=== PATIENT | male | born 1965 | race Two or more races ===

== ENCOUNTER 2019-08-28 20:00 | Emergency (ER) | payer MEDICAID ==
[~2019-08-28] VITALS: Ht 190.5 cm; Wt 99.8 kg
[2019-08-28 21:42] LABS: Basophils # (auto) 0.1 10 ^3/uL (0-0.2); Basophils % (auto) 0.7 % (0.0-2.0); Eosinophils # (auto) 0.2 10 ^3/uL (0-0.8); Hematocrit 38.1 % (41.0-53.0); Hemoglobin 12.8 g/dL (13.5-17.5); Lymphocytes # (auto) 1.9 10 ^3/uL (0.4-5.4); Lymphocytes % (auto) 18.6 % (10.0-50.0); Mean Corpuscular Hemoglobin 28.6 pg (28.0-32.0); Mean Corpuscular Hgb Conc. 33.6 g/dL (32.0-36.0); Mean Corpuscular Volume 84.9 fL (80.0-100.0); Monocytes # (auto) 1.1 10 ^3/uL (0-1.3); Monocytes % (auto) 10.1 % (0.0-12.0); Neutrophils # (auto) 7.1 10 ^3/uL (1.6-8.6); Neutrophils % (auto) 68.6 % (37.0-80.0); Platelet Count (auto) 270 10^3/uL (140-450); Red Blood Cells 4.48 10^6/uL (4.5-5.90); Red Cell Distribution Width 14.5 % (11.8-14.3); White Blood Cell 10.4 10^3/uL (4.4-10.8)
[2019-08-28 22:01] LABS: Albumin 3.6 g/dL (3.4-5.0); Calcium 8.8 mg/dL (8.5-10.1)
[2019-08-28 22:04] LABS: BUN/Creatinine Ratio 19.3; Bilirubin, Total 0.6 mg/dL (0.2-1.0); Total Protein 7.8 g/dL (6.4-8.2)
[2019-08-28 22:06] LABS: INR 0.96 (0.9-1.15); Partial Thromboplastin Time 28.8 sec (23.64-32.05)
[2019-08-29] MEDS ORDERED: LIDOCAINE 1% HCL (LOCAL ANESTH.) INJ 20ML MDV ID ONE
[2019-08-29] MEDS ORDERED: HYDROcodone-ACET 5/325MG TAB PO ONE (01:00)
[2019-08-29] MEDS ORDERED: cefTRIAXone W LIDOCAINE 1 GM IM IM ONE (01:30)
[2019-08-29] MEDS ORDERED: cefTRIAXone SOD 1,000 MG VL IM ONE (02:15)
[2019-08-29 03:00] VITALS: BP 132/85
== END 2019-08-29 03:40 | disposition home or self-care (01) ==
LOC: ER 20:01
DX: S80.12XA Contusion of left lower leg, initial encounter (principal); L08.9 Local infection of the skin and subcutaneous tissue, unspecified; I82.812 Embolism and thrombosis of superficial veins of left lower extremity; L03.116 Cellulitis of left lower limb; X58.XXXA Exposure to other specified factors, initial encounter; Y93.89 Activity, other specified; Y92.89 Other specified places as the place of occurrence of the external cause; Y99.8 Other external cause status
CPT/HCPCS: 10060; 36415; 73700; 80053; 85025; 85610; 85730; 87205; 93971; 96372

== ENCOUNTER 2019-08-31 10:31 | Inpatient (IN) | payer MEDICAID, OTHER ==
[~2019-08-31] VITALS: Ht 190.5 cm; Wt 105.5 kg
[2019-08-31] MEDS ORDERED: SODIUM CHLORIDE 0.9% 500 ML IV ONE (11:19)
[2019-08-31] MEDS ORDERED: CLINDAMYCIN 600MG IV 50 ML IV ONE (11:30)
[2019-08-31 11:54] LABS: Basophils # (auto) 0 10 ^3/uL (0-0.2); Basophils % (auto) 0.4 % (0.0-2.0); Eosinophils # (auto) 0.2 10 ^3/uL (0-0.8); Hematocrit 36.5 % (41.0-53.0); Hemoglobin 12.6 g/dL (13.5-17.5); Lymphocytes # (auto) 1.6 10 ^3/uL (0.4-5.4); Lymphocytes % (auto) 18.4 % (10.0-50.0); Mean Corpuscular Hemoglobin 29.2 pg (28.0-32.0); Mean Corpuscular Hgb Conc. 34.6 g/dL (32.0-36.0); Mean Corpuscular Volume 84.4 fL (80.0-100.0); Monocytes % (auto) 11.5 % (0.0-12.0); Neutrophils # (auto) 5.8 10 ^3/uL (1.6-8.6); Neutrophils % (auto) 67.7 % (37.0-80.0); Platelet Count (auto) 265 10^3/uL (140-450); Red Blood Cells 4.32 10^6/uL (4.5-5.90); Red Cell Distribution Width 14.5 % (11.8-14.3); White Blood Cell 8.6 10^3/uL (4.4-10.8)
[2019-08-31 12:15] LABS: Potassium 4.3 mmol/L (3.5-5.1)
[2019-08-31] MEDS ORDERED: ACETAMINOPHEN 500 MG TAB PO PRN (12:30)
[2019-08-31] MEDS ORDERED: IPRATROPIUM BROM 0.5 MG/2.5ML INH SOL NEB PRN (12:30)
[2019-08-31] MEDS ORDERED: HYDROcodone-ACET 5/325MG TAB PO PRN (12:30)
[2019-08-31] MEDS ORDERED: MORPHINE SULF INJ 2 MG/ML SYRINGE 1ML IV PRN (12:30)
[2019-08-31] MEDS ORDERED: ONDANSETRON HCL 4 MG/2 ML VIAL IV PRN (12:30)
[2019-08-31] MEDS ORDERED: ALBUTEROL SULF 2.5 MG/0.5ML(0.5%) NEB SOLN NEB PRN (12:30)
[2019-08-31] MEDS ORDERED: VANCOMYCIN PER PHARMACY 0 MG IV SCH (12:30)
[2019-08-31 12:33] LABS: Albumin 3.2 g/dL (3.4-5.0); Bilirubin, Total 0.5 mg/dL (0.2-1.0); Calcium 8.6 mg/dL (8.5-10.1); Total Protein 7.5 g/dL (6.4-8.2)
[2019-08-31] MEDS: SODIUM CHLORIDE 0.9% 1,000 ML IV SCH ×3 (12:43→23:20)
[2019-08-31] MEDS ORDERED: FAMOTIDINE 20 MG TAB PO ONE (12:45)
[2019-08-31] MEDS ORDERED: cefTRIAXone 1GM/50ML D5W 50 ML IV ONE (12:45)
--- NOTE | 2019-08-31 13:04 | NUR ---
Report ER report received from GIA Schaffer.
--- NOTE | 2019-08-31 13:14 | NUR ---
Arrived to Unit Patient arrived to unit via wheelchair. No signs of distress at this time. Respirations even and unlabored, safety precautions in place. Will continue to monitor.
--- NOTE | 2019-08-31 13:24 | NUR ---
Skin Assessment Left calf puncture; leg has non pitting edema, bright red tissue surrounding area. Patient states he is unsure how wound occurred, states it could be puncture wound from work or spider bite. Wound is currently open to air but packed during last visit. No signs of distress noted at this time, bed is locked and in lowest position, call light within reach. Patient oriented to room and call light. Respirations even and unlabored, will continue to monitor.
[2019-08-31] MEDS: VANCOMYCIN 1GM/250ML 250 ML IV SCH (14:31)
--- NOTE | 2019-08-31 18:36 | NUR ---
Hospitalist Spoke with Richard, new orders to remove packing and measure depth of wound.
--- NOTE | 2019-08-31 18:45 | NUR ---
Wound Packing removed per MD order. Wound cleansed and wrapped with gauze. Wound measures approximately 1.5 cm in depth.
--- NOTE | 2019-08-31 19:22 | NUR ---
Respiratory note: AT BESIDE TO ASSESS PT FOR PRN TX. TX NOT INDICATED AT THIS TIME, BS ARE CLEAR T/O, HR IN 70S, POX 96-98% ON RA. NO S/S OF DISTRESS NOTED. PT AWARE I CAN BE PAGED AT ANY TIME HE HAS A CONCERN WITH HIS BREATHING RT NAME AND PAGER ASSIGNMENT WRITTEN ON PTS ROOM BOARD WILL CONTINUE TO MONITOR.
--- NOTE | 2019-08-31 20:00 | NUR ---
assumed care, tp. awake, no co pain, not in distress.
[2019-08-31 22:00] VITALS: BP 150/91
[2019-09-01] MEDS: VANCOMYCIN 1GM/250ML 250 ML IV SCH ×2 (00:01→10:20)
[2019-09-01 03:08] VITALS: BP 150/91
[2019-09-01 05:00] VITALS: BP 143/89
[2019-09-01 06:33] LABS: Basophils # (auto) 0 10 ^3/uL (0-0.2); Basophils % (auto) 0.6 % (0.0-2.0); Eosinophils # (auto) 0.2 10 ^3/uL (0-0.8); Hematocrit 36.6 % (41.0-53.0); Hemoglobin 12.3 g/dL (13.5-17.5); Lymphocytes # (auto) 1.7 10 ^3/uL (0.4-5.4); Lymphocytes % (auto) 19.6 % (10.0-50.0); Mean Corpuscular Hemoglobin 28.5 pg (28.0-32.0); Mean Corpuscular Hgb Conc. 33.6 g/dL (32.0-36.0); Mean Corpuscular Volume 84.9 fL (80.0-100.0); Monocytes # (auto) 0.9 10 ^3/uL (0-1.3); Monocytes % (auto) 10.6 % (0.0-12.0); Neutrophils # (auto) 5.7 10 ^3/uL (1.6-8.6); Neutrophils % (auto) 67.2 % (37.0-80.0); Platelet Count (auto) 303 10^3/uL (140-450); Red Blood Cells 4.31 10^6/uL (4.5-5.90); Red Cell Distribution Width 14.6 % (11.8-14.3); White Blood Cell 8.5 10^3/uL (4.4-10.8)
[2019-09-01 06:51] LABS: Potassium 4.4 mmol/L (3.5-5.1)
[2019-09-01 06:56] LABS: BUN/Creatinine Ratio 13.8; Calcium 8.8 mg/dL (8.5-10.1)
--- NOTE | 2019-09-01 08:00 | NUR ---
ASSUMED CARE OF PT FULLY INDEPENDENT IN CARES. PLEASANT DENIES ANY DISCOMFORT OR NEEDS. LUNG SOUNDS CLEAR. MARKED EDEMA NOTED TO LEFT LOWER EXTREMITY. DSG IN PLACE. STATES PACKING HAS BEEN REMOVED. PEDAL PULSE PALPATED PRESENT. +1 PITTING EDEMA TO NELSON. TAKES IN 100% BREAKFAST.
[2019-09-01 08:57] VITALS: BP 154/98
[2019-09-01] MEDS ORDERED: cefTRIAXone 1GM/50ML D5W 50 ML IV SCH (09:00)
[2019-09-01] MEDS ORDERED: FAMOTIDINE 20 MG TAB PO SCH ×2 (10:00)
--- NOTE | 2019-09-01 12:20 | NUR ---
WOUND CARE NOTE: IN TO SEE PATIENT AT THIS TIME PER WOUND CARE CONSULT REQUEST. PATIENT RECENTLY ADMITTED TO [facility] WITH DIAGNOSIS OF LLE CELLULITIS. CURRENT LUCI SCORE IS 17. PATIENT WAS NOTED TO HAVE WOUND UPON ADMIT, WOUND PHOTO TAKEN BY BEDSIDE NURSE AT THAT TIME FOR REFERENCE. PATIENT STATES THAT THREE DAYS AGO HE UNDERWENT AN I&D ABSCESS IN THE ER. HE RETURNED YESTERDAY, AND WAS ADMITTED FOR IV ANTIBIOTICS, SURGICAL CONSULT ORDERED (PENDING). PATIENT NOTED TO HAVE A 1.2 X 0.4 X 1 CM TO THE LEFT CALF. PERIWOUND IS BRIGHT RED, INDURATED. PATIENT HAS LIGHT SEROUS DRAINAGE AT THIS TIME. CLEANSED WITH WOUND CLEANSER. PAT DRY WITH STERILE GAUZE. PACKED WOUNDBED WITH 1/4 INCH PLAIN PACKING STRIP, SOAKED IN BETADINE. 1 INCH TAIL OUT OF WOUND. COVERED WITH OPTIFOAM GENTLE DRESSING. PATIENT TOLERATED DRESSING CHANGE WELL, NOTING NO PAIN BY PATIENT. RECOMMEND: DAILY/PRN DRESSING CHANGE, DIETARY CONSULT, SKIN/WOUND CARE PLAN, SURGICAL CONSULT. WOUND CARE TEAM WILL CONTINUE TO MONITOR. Addendum: 09/01/19 at 1720 by Lupe Mishra RN Amended: Links added.
[2019-09-01] MEDS: SODIUM CHLORIDE 0.9% 1,000 ML IV SCH ×2 (12:33→12:34)
[2019-09-01 13:00] VITALS: BP 141/92
--- NOTE | 2019-09-01 13:00 | NUR ---
PRIVATE WEALTH ADVISOR ROUNDED AND REDRESSED WOUND. STATED DEPTH 1-2 CM. PICTURES TAKEN. HOSPITALIST ROUNDED AND REQUESTED SURGICAL CONSULT. DR. CARRENO PAGED BY SENIOR SALES ENGINEER. ON OR ABOUT 1300 PT IS SEEN BY STAFF FULLY DRESSED AND WALKING BRISKLY TO THE ELEVATORS. HE DOES NOT RESPOND WHEN NAME IS CALLED AND CONTINUES EXITING. I USED THE STAIRS TO MEET UP WITH HIM EXITING THE BUILDING THROUGH THE ER. I ASKED POLITELY IF I COULD TAKE OUT HIS IV. HE DECLINED STATING HE WOULD TAKE IT OUT HIMSELF. SECURITY WAS PRESENT AND ADVISED ME TO NOT APPROACH THE PT. PT ENTERED A WHITE SUBURBAN WITH A MALE PRODUCTION UTILITY WORKER AND FEMALE SPINNER CONTINUOUS. I ASKED THE PRODUCTION UTILITY WORKER PERMISSION TO REMOVE "THE PLASTIC TUBE" IN HIS HAND. THE PATIENT CONSENTED AND CAME OUT OF THE PASSENGER SIDE OF THE VEHICLE STRETCHING HIS HAND OUT ALLOWING THE IV TO BE REMOVED. CANNULA INTACT. DSG APPLIED. PT GAVE APOLOGY FOR LEAVING STATING HE DOESN'T DO WELL IN HOSPITALS AND WHEN HE SAW SOME STUFF ON THE NEWS ABOUT THE HYDE VIRUS IN HOSPITALS " I FREAKED OUT" AND HE FELT THE NEED TO FLEE.
[2019-09-01] MEDS ORDERED: PIPERACILLIN-TAZO 4.5GM 100 ML IV SCH (14:00)
[2019-09-02] MEDS ORDERED: ENOXAPARIN SOD 40 MG/0.4 ML SYRINGE SC SCH (10:00)
== END 2019-09-01 13:00 | disposition left against medical advice (07) | DRG 383 ==
LOC: ER 10:31 → EDUNIT# 10:31 → OVERFLOW 10:32 → WEST WING 13:14
PROVIDERS: ADMIT Nurse Practitioner Acute Care; ATTEND Nurse Practitioner Acute Care
DX: L03.116 Cellulitis of left lower limb (principal); D64.9 Anemia, unspecified; L02.416 Cutaneous abscess of left lower limb; I10 Essential (primary) hypertension; Z79.899 Other long term (current) drug therapy; Z53.29 Procedure and treatment not carried out because of patient's decision for other reasons; Z71.6 Tobacco abuse counseling; F17.200 Nicotine dependence, unspecified, uncomplicated
CPT/HCPCS: 36415; 80048; 80053; 85025; 85652; 87081; 96361; 96365; 96367; G0378; J0696; J2543; J3490